=== PATIENT | female | born 1935 | race Caucasian/White ===

== ENCOUNTER 2017-08-08 21:26 | Inpatient (IN) | payer OTHER ==
[~2017-08-08] VITALS: Ht 157.5 cm; Wt 64.3 kg
[~2017-08-08 21:26] MED LIST: ARTHRITIS PAIN650 M5 PO; CIPRO500 MG PO; DEXILANT30 MG PO; FEOSOL325 MG PO; LOTREL 2.5/1 CAPSULE PO; ZESTRIL40 MG PO; ZOCOR20 MG PO
[2017-08-09 06:34] VITALS: BP 172/96
[2017-08-09 10:13] VITALS: BP 138/82
[2017-08-09 16:03] VITALS: BP 125/67
[2017-08-09 20:30] VITALS: BP 110/64
[2017-08-09 23:48] VITALS: BP 104/56
[2017-08-10 04:00] VITALS: BP 179/85
[2017-08-10 06:10] LABS: CHLORIDE 107 MEQ/L (99-109); CREATININE 1.4 MG/DL (0.6-1.3); GFR ESTIMATE (CALCULATED) 38 mL/min/; GLUCOSE 113 mg/dL (70-99); SODIUM 136 MEQ/L (136-147); UREA NITROGEN (BUN) 20 mg/dL (9-23)
[2017-08-10 15:29] VITALS: BP 124/59
[2017-08-10 20:08] VITALS: BP 123/64
[2017-08-11] VITALS: BP 123/69
[2017-08-11 03:38] VITALS: BP 146/75
[2017-08-11 05:28] LABS: CHLORIDE 110 MEQ/L (99-109); CREATININE 1.1 MG/DL (0.6-1.3); GFR ESTIMATE (CALCULATED) 51 mL/min/; GLUCOSE 104 mg/dL (70-99); POTASSIUM 4.4 MEQ/L (3.7-5.4); SODIUM 141 MEQ/L (136-147); UREA NITROGEN (BUN) 20 mg/dL (9-23)
[2017-08-11 07:36] VITALS: BP 144/77
[2017-08-11] MEDS ORDERED: SENNA PLUS TAB1 EACH PO (10:37)
[2017-08-11] MEDS ORDERED: HYDROCODON-ACE1 EAC7 PO (10:39)
[2017-08-11] MEDS ORDERED: Salonpas 4% Patch TD (10:39)
[2017-08-11] MEDS ORDERED: ELIQUIS2.5 MG PO (10:39)
[2017-08-11 12:06] VITALS: BP 140/73
== END 2017-08-11 12:55 | DRG 470 ==
LOC: ENRESERV 21:26 → 2SOUTH 08-09 05:08 → 3WEST 08-09 09:49 → 2SOUTH 08-09 11:48 → 3WEST 08-11 12:55
PROVIDERS: Orthopaedic Surgery; Physician Assistant Surgical
PROC: 0SRC0J9 Replacement of Right Knee Joint with Synthetic Substitute, Cemented, Open Approach (ICD-10-PCS; principal; 2017-08-09)
DX: M17.11 Unilateral primary osteoarthritis, right knee (principal); G89.29 Other chronic pain
CPT/HCPCS: 80048; C1713; J0690; J1100; J1885; J2405; J3010; J7050; J7120; L1820; S0020